=== PATIENT | male | born 1985 | race Caucasian/White ===

== ENCOUNTER 2024-08-26 08:18 | Outpatient (CLI) | payer BC, SELFPAY ==
--- OUTSIDE RECORDS SUMMARY | 2024-08-26 08:26 | XMS_ITS | Clinical Summary ---
Author Organization [facility] Address [address] [place] [address] Phone Care Team Providers Care Head Grinder Name Role Phone Fredy Naranjo MD Primary Care Provider Allergies Active Allergy Reactions Criticality Noted Date Comments Penicillins Rash Low 02/28/2016 Medications tadalafil (CIALIS) 20 mg tablet Take 1 Tablet (20 mg) by mouth 1 time daily as needed for Erectile Dysfunction. 3 Tablet 0 6 Active sildenafil (VIAGRA) 100 mg tablet Take 1 Tablet (100 mg) by mouth 1 time daily as needed for Erectile Dysfunction Order number [id number]. 24 Tablet 6 7 Active Active Problems Problem Noted Date Diagnosed Date Impotence 02/28/2016 Social History Tobacco Use Types Packs/Day Years Used Date Smoking Tobacco: Never Smokeless Tobacco: Never Alcohol Use Standard Drinks/Week Comments Yes 0 (1 standard drink = 0.6 oz pur e alcohol) Sex and Gender Information Value Date Recorded Sex Assigned at Not on file Legal Sex Male 7:05 AM CDT Gender Identity Not on file Sexual Orientation Not on file Last Filed Vital Signs Vital Sign Reading Time Taken Comments Blood Pressure 120/70 02/28/2016 10:23 AM CDT Pulse - - Temperature - - Respiratory Rate - - Oxygen Saturation - - Inhaled Oxygen Concentration - - Weight 99.8 kg (220 lb) 02/28/2016 10:23 AM CDT Height 180.3 cm (5' 11 ) 02/28/2016 10:23 AM CDT Body Mass Index 30.68 02/28/2016 10:23 AM CDT Plan of Treatment Health Maintenance Due Date Last Done Comments DTAP/TDAP/TD VACCINES (1 - Tdap) 2002 HEPATITIS B VACCINES (1 of 3 - 19+ 3-dose series) 2002 INFLUENZA VACCINE (#1) 2024 HPV VACCINES Aged Out No longer eligi ble based on patient's age to complete this topic PNEUMOCOCCAL VACCINE 0-64 YEARS Aged Out No longer eligible based on patient's age to complete this topic Care Teams Head Grinder Relationship Specialty Start Date End Date Fredy Naranjo MD [address] [place] [id number] PCP - General Family Practice 12/26/15
--- OUTSIDE RECORDS SUMMARY | 2024-08-26 08:26 | XMS_ITS | Continuity of Care Document ---
Author Organization [facility] Address [address] [place] [address] Phone Care Team Providers Care Clinical Data Manager Name Role Phone Francisco Dean MD Unavailable Unavailable Allergies, Adverse Reactions, Alerts Substance Reaction Status Criticality Penicillins Active No Information Medications Medication Instructions Dosage Effective Dates (start - stop) Status Comments Prozac 20 mg capsule take 1 capsule by o ral route every day in the morning 20 MG - Active Procedures Procedure Date RADEX ANTONIO COMPL MINIMUM 2 VIEWS 019 POSTOP FOLLOW-UP VISIT Advance Directives Directive Yes / No Effective Date File Name No Information Encounters Encounter Description Practice Location Reason(s) For Visit Diagnoses Date Provider Providers Copied on Encounter [facility] , [address] [facility] [address] [facility] [address], [place], [address], tel:[phone] [facility] No Information [address] Jermaine Singh. [address], [place], [place], [id number] . tel:[phone] [facility] , [address] [facility] [address], [place], [address], [place] tel:[phone] [facility] Right shoulder pain, unspecified chronicity [address] Jermaine Singh. [address], [place], [place], [id number] . tel:[phone] Referring Provider: Fredy Casper, [address] [facility], [place], [address] . tel:[phone] Family History Family Member Type Diagnosis Age At Onset Mother Problem (finding) Cardiovascular disease Payers Payer name Insurance type Covered republican ID Authorzeenat lakhani(s) Blue Access Choice PPO [id number] OT [id number] Social History Type Description Quantity Date Captured Comments Alcohol Use Details Unknown Caffeine Use Details Unknown Tobacco Use Status No Information Smoking Status No Information Sex Male Chief Complaint And Reason For Visit No Information Reason For Referral Reason For Referral No Information Plan Of Treatment Date Type Action Status Referral Ordered: RADEX ANTONIO COMPL MINIMUM 2 VIEWS RT shoulder ordered History Of Present Illness Encounter Date Complaint History Of Prese nt Illness No Information Functional Status Date Functional Assessmen t No Information Instructions Date Instruction Additional Infor matcyndi Weight bearing status as directe d. Related to Right shoulder pain, unspecified chronicity Home exercise program. Related t o Right shoulder pain, unspecified chronicity Discussed treatment options Rela luis fernando to Right shoulder pain, unspecified chronicity Call for increase in pain Relate d to Right shoulder pain, unspecified chronicity Assessments Type Assessment Date No Information Patient Care Teams Name Effective Dates (start - stop) Status Members No Information
--- OUTSIDE RECORDS SUMMARY | 2024-08-26 08:26 | XMS_ITS | Data Portability ---
Author Organization [facility] RuiYi, Main Office Address [address] [place] [address] Assessment No assessment recorded. Plan of Treatment Reminders Order Date Submit Date Provider Last Modified By Organization Details Last Modified Time Details Appointments None recorded. Lab testostero ne, total, serum [address] (Lab), [address] [place], [address], 4 10:41:05 vitamin D, 25-hydroxy , total, serum [address] (Lab), [address] [place], [address], 4 10:41:10 vitamin B12 + folate, serum or blood [address] (Lab), [address] [place], [address], 4 10:41:36 glycohemog lobin, total, blood [address] (Lab), [address] [place], [address], 4 10:40:31 lipid panel, serum [address] (Lab), [address] [place], [address], 4 10:40:35 TSH, serum or plasma [address] (Lab), [address] [place], [address], 4 10:40:40 PSA, serum or plasma [address] (Lab), [address] [place], [address], 4 10:40:45 hepatic function panel, serum [address] (Lab), [address] [place], [address], 4 10:40:52 BMP, serum or plasma [address] (Lab), [address] [place], [address], 4 10:40:56 CBC [address] (Lab), [address] [place], [address], 4 10:41:01 Referral None recorded. Procedures None recorded. Surgeries None recorded. Imaging None recorded. Medication Orders None recorded. Patient TargetsNo targets recorded. Patient InstructionsNo instructions recorded. Reason for Referral None Reported. Results Created Date Observation Date Name Description Value Unit Range Abnormal Flag Note LastModifiedBy Organization Detail LastModifiedTime 04/11/20 22 04/11/2022 COLOG UARD cologuard result cancel led - order d not applic able Not Available [facility] (Cologuard Orders Only) [address], [place], [address], 04/11/2022 12:40:16 06/26/20 22 06/26/2022 HEMOG LOBIN A1C HA1C 5.4 % 4.0-6. 0 Diabe paige Scree rosa maria Crite zamzam: <5.7% Consi stent with absen ce of diabe paige 5.7-6 .4% Consi stent with incre ased risk for diabe paige (pred iabet es) >OR=6 .5% Consi stent with diabe paige REFER ENCE: Diabe paige Care 2016, 39(Mcclendon ppl.1 ):s13 -s22 Not Available [facility] (Lab) [address] [place], [address], 06/26/2022 22:33:13 06/26/20 22 06/26/2022 LIPID PANEL cholesterol 294 mg/dL 140-19 9 high NIH WINDY NSUS RECOM MENDA TION FOR ERIC STERO L: ADULT CHILD LOW RISK: <200 <170 BORDE RLINE : <200- 239 ----- HIGH RISK: >240 >200 Not Available [facility] (Lab) [address] [place], [address], 06/26/2022 21:05:17 06/26/20 22 06/26/2022 LIPID PANEL triglyceride s 276 mg/dL 0-150 high NIH WINDY NSUS REPOR T RECOM MENDA TION FOR TRIGL YCERI KATRINA: ADULT CHILD LOW RISK: <150 ----- BODER LINE: 150-1 99 ----- HIGH RISK: >200 ----- Not Available [facility] (Lab) [address] [place], [address], 06/26/2022 21:05:17 06/26/20 22 06/26/2022 LIPID PANEL HDL cholesterol 41 mg/dL 40- Not Available [facility] (Lab) [address] [place], [address], 06/26/2022 21:05:17 06/26/20 22 06/26/2022 LIPID PANEL LDL cholesterol, calculated 198 mg/dL 0-130 high NIH WINDY NSUS REPOR T RECOM MENDA TIONS FOR LDL: ADULT CHILD LOW RISK <130 <110 (OPTI MAL LDL) <100 ----- BORDE RLINE : 130-1 59 ----- HIGH RISK: >160 >130 A TRIGL YCERI DE RESUL T >400 INVAL IDATE S THE CALCU LATIO N FOR LDL FRACT IONAT ION - THE LDL RESUL T WILL NOT BE REPOR DORCAS. Not Available [facility] (Lab) [address] [place], [address], 06/26/2022 21:05:17 06/26/20 22 06/26/2022 BASIC METAB OLIC PANEL sodium 141 mmol/ L 137-14 5 Not Available [facility] (Lab) [address] [place], [address], 06/26/2022 21:05:12 06/26/20 22 06/26/2022 BASIC METAB OLIC PANEL potassium 3.9 mmol/ L 3.5-5. 1 Not Available [facility] (Lab) [address] [place], [address], 06/26/2022 21:05:12 06/26/20 22 06/26/2022 BASIC METAB OLIC PANEL chloride 103 mmol/ L 98-107 Not Available [facility] (Lab) [address] [place], [address], 06/26/2022 21:05:12 06/26/20 22 06/26/2022 BASIC METAB OLIC PANEL carbon dioxide 25 mmol/ L 22-30 Not Available [facility] (Lab) [address] [place], [address], 06/26/2022 21:05:12 06/26/20 22 06/26/2022 BASIC METAB OLIC PANEL anion gap 16.9 mmol/ L 14-22 Not Available [facility] (Lab) [address] [place], [address], 06/26/2022 21:05:12 06/26/20 22 06/26/2022 BASIC METAB OLIC PANEL glucose 98 mg/dL 70-99 Not Available [facility] (Lab) [address] [facility], [address], 06/26/2022 21:05:12 06/26/20 22 06/26/2022 BASIC METAB OLIC PANEL BUN 18 mg/dL 8-19 Not Available [facility] (Lab) [address] [place], [address], 06/26/2022 21:05:12 06/26/20 22 06/26/2022 BASIC METAB OLIC PANEL creatinine 1.12 mg/dL 0.66-1 .25 Not Available [facility] (Lab) [address] [place], [address], 06/26/2022 21:05:12 06/26/20 22 06/26/2022 BASIC METAB OLIC PANEL GFR >60 Refer ence Range : Suring ge GFR Healt hy Adult : >60 mL/mi n/1.7 3 m2 Chron ic Kidne y Disea se: 15-60 mL/mi n/1.7 3 m2 Kidne y Failu re: <15/m L/min /1.73 m2 www.n iddk. nih.g ov The MDRD study equat ion has not been valid ated in child tessa <18 years of age; pregn ant women ; the elder ly >85 years of age; or in some racia l or ethni c subgr oups, such as [facility] nics. Outsi de the valid ated renetta eters , estim ated GFR is less accur ate, requi ring clini israel judgm ent on a case- by-ca se basis . Clini israel inter preta tion for other races and ages must be made by the clini roula. The MDRD study equat ion has not been valid ated for the evalu ation of serum creat inine relat ed to nutri yumiko l statu s or medic ation usage . For perso ns <18 years of age, a pedia tric GFR calcu lator is avail able on the F websi te: https ://michelle w.jocelin murcia.o rg/pr ofess ional s/kdo qi/gf r_cal culat or Not Available [facility] (Lab) [address] [place], [address], 06/26/2022 21:05:12 06/26/20 22 06/26/2022 BASIC METAB OLIC PANEL calcium 9.5 mg/dL 8.4-10 .2 Not Available [facility] (Lab) [address] [facility], [address], 06/26/2022 21:05:12 Result Notes None recorded. Problems Name Problem SNOMED Code Status Onset Date Resolution Date Notes Provider Name and Address Organization Details Recorded Time Deviated nasal septum 293352064 Active 2022 Not Available [facility] 3 10:43:25 Postoperative pain 508493913 Active 2022 Not Available [facility] 3 10:43:25 Chronic sinusitis 89028669 Active 2022 Not Available [facility] 3 10:43:25 Effects of high altitude 31229259 Active 2022 TIA Lawrence [address], [place], [address] , [employer] 3 17:14:59 Bacterial conjunctiviti s 112639268 Active 2022 CECILIA Cueto [address] [facility] [facility], [address] [facility], [place], [address] , [employer] 3 10:19:12 Upper respiratory infection 74458376 Active 2022 CECILIA Cueto [address], [place], [address] , [employer] 3 10:22:41 Acute urticaria 388206399 Active 2023 Kimberly Barragan MD [address], [address], [place], [address] , [employer] 4 15:42:18 Problem Notes None recorded. Procedures Surgical History Date Name Laterality Status Provider Name and Address Organization Details Recorded Time 08/27/19 23 nasal septoplasty completed China Watters RN [facility] 09/05/2022 11:50:35 08/27/19 reduction of nasal turbinate completed China Watters RN [facility] 09/05/2022 11:50:53 procedure on urinary bladder completed Not Available [facility] 09/05/2022 10:41:45 Imaging Results None recorded. Procedure Notes None recorded. Medical Equipment None Reported. Allergies Allergen ID Allergen Name Allergen Category Reaction Reaction Severity Criticality Documentation Date Start Date Code Code System Note Provider Name and Address Organization Details Recorded Time Product containin g penicilli n (product) medicatio n Not available Not available Not available 09/05/2022 [id number] [id number] SNOMED as a child Not Available [facility] 10:45:13 Medications Name Sig Start Date Stop Date Status Note LastModified by Organization Details LastModified Time atorvastati n 40 mg tablet Take 1 tablet every day by oral route. active Not Available Not Available No t Available azithromyci n 250 mg tablet TAKE 2 TABLETS BY MOUTH ON DAY 1, AND THEN TAKE 1 TABLET BY MOUTH ONCE A DAY ON DAY 2 THROUGH DAY 5 active Not Available Not Available No t Available acetazolami de 125 mg tablet TAKE 1 TABLET BY MOUTH TWICE DAILY FOR 10 DAYS active Not Available Not Available No t Available benzonatate 200 mg capsule TAKE 1 CAPSULE BY MOUTH THREE TIMES DAILY NEEDED active Not Available Not Available No t Available prednisone 20 mg tablet TAKE 2 TABLETS BY MOUTH ONCE DAILY FOR 5 DAYS active Not Available Not Available No t Available hydrocodone 7.5 mg-acetamin ophen 325 mg tablet Take 1 tablet every 6 hours by oral route as needed. 09/05 completed Not Available Not Available Not Available polymyxin B sulfate 10,000 unit-trimet hoprim 1 mg/mL eye drops INSTILL 1 DROP INTO AFFECTED EYE(S) EVERY 6 HOURS active Not Available Not Available No t Available fluoxetine 10 mg capsule TAKE 1 CAPSULE BY MOUTH ONCE DAILY WITH A 20MG CAPSULE FOR A TOTAL OF 30MG active Not Available Not Available No t Available scopolamine 1 mg over 3 days transdermal patch active Not Available Not Available Not Available hydroxyzine HCl 10 mg tablet TAKE 1 TABLET BY MOUTH ONCE DAILY NEEDED active Not Available Not Available No t Available cefdinir 300 mg capsule Take 1 capsule every 12 hours by oral route for 10 days. active Not Available Not Available No t Available fluoxetine 20 mg capsule TAKE 1 CAPSULE BY MOUTH ONCE DAILY active Not Available Not Available No t Available fluticasone propionate 50 mcg/actuati on nasal spray,suspe nsion Flushing 1 spray every day by intranasa l route. active Not Available Not Available No t Available COVID-19 test specimen collection TEST DIRECTED 06/18 completed Not Available Not Available Not Available Vitals Date Recorded Body mass index (BMI) Body mass index (BMI) Body height Body height Oxygen saturation Oxygen saturation in Arterial blood by Pulse oximetry Oxygen saturation Oxygen saturation in Arterial blood by Pulse oximetry Heart rate Heart rate Body temperature Body temperature Body temperature Body weight Body weight Body weight Systolic blood pressure Diastolic blood pressure Systolic blood pressure Diastolic blood pressure Provider Name and Address Organization Details Last Updated DateTime 3 33.1 kg/m2 32.9 kg/m2 180.34 cm 180.34 cm 98 % 98 % 98 % 98 % 87 /min 111 /min 98.3 [degF] 98 [degF] 97.7 [degF] 509043. 39 g 050143. 8 g 172467. 8 g 132 mm[Hg] 84 mm[Hg] 140 mm[Hg] 84 mm[Hg] Not Available [facility] 3 10:42:38 Date Recorded Body height Body mass index (BMI) Body weight Body temperature Provider Name and Address Organization Details Last Updated DateTime 09/06/2022 180.34 cm 33.3 kg/m2 307191.86 g 98.4 [degF] China Watters RN [facility] 09/06/2022 15:10:51 Date Recorded Body height Body mass index (BMI) Body weight Body temperature Heart rate Oxygen saturation Oxygen saturation in Arterial blood by Pulse oximetry Systolic blood pressure Diastolic blood pressure Provider Name and Address Organization Details Last Updated DateTime 4 180.34 cm 32.9 kg/m2 937446. 8 g 97.9 [degF] 82 /min 97 % 97 % 138 mm[Hg] 96 mm[Hg] Cristal Leiva RN [facility] 4 09:51:20 Social History Question Answer Notes LastModified by Organizat ion Details LastModified Time Tobacco Smoking Status Never Smoker Not Available [facility] 09/05/2022 10:40:53 Do You Have An Advance Directive? No MIGRATION.[id number] Information not available 09/05/2022 What Is Your Level Of Alcohol Consumption? Occasional MIGRATION.991999 3383 Information not available 09/05/2022 What Is Your Level Of Caffeine Consumption? Moderate MIGRATION.957605 7324 Information not available 09/05/2022 In The 14 Days Before Symptom Onset, Have You Had Close Contact With A Laboratory-confir med COVID-19 While That Case Was Ill? No MIGRATION.[id number] 6462 Information not available 09/05/2022 In The 14 Days Before Symptom Onset, Have You Had Close Contact With A Person Who Is Under Investigation For COVID-19 While That Person Was Ill? No MIGRATION.862344 1274 Information not available 09/05/2022 What Type Of Diet Are You Following? REGULAR MIGRATION.126623 3996 Information not available 09/05/2022 What Is The Highest Grade Or Level Of School You Have Completed Or The Highest Degree You Have Received? 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 No MIGRATION.089177 1626 Information not available 09/05/2022 What Is The Fluoride Status Of Your Home? Unknown MIGRATION.100745 2193 Information not available 09/05/2022 Are There Any Guns Present In Your Home? Yes MIGRATION.666691 8636 Information not available 09/05/2022 Do You Use Insect Repellent Routinely? Yes MIGRATION.914471 2863 Information not available 09/05/2022 Where Do You Live? [place] MIGRATION.787078 8469 Information not available 09/05/2022 Do You Have A Medical Power Of Research Agricultural Engineer? No MIGRATION.039202 4968 Information not available 09/05/2022 Do You Have Any Pets? Yes MIGRATION.860747 4891 Information not available 09/05/2022 What Is Your Relationship Status? MIGRATION.169692 8052 Information not available 09/05/2022 Do You Use Your Seat Belt Or Car Seat Routinely? Yes MIGRATION.470567 7328 Information not available 09/05/2022 Do You Have Smoke And Carbon Monoxide Detectors In Your Home? Yes MIGRATION.508686 4631 Information not available 09/05/2022 Are You Passively Exposed To Smoke? No MIGRATION.353779 1869 Information not available 09/05/2022 Are There Any Smokers In Your House? No MIGRATION.381119 0117 Information not available 09/05/2022 Do You Participate In Social Media? Yes MIGRATION.586480 9947 Information not available 09/05/2022 What Types Of Sporting Activities Do You Participate In? Running MIGRATION.958275 5455 Information not available 09/05/2022 Do You Feel Stressed (tense, Restless, Nervous, Or Anxious, Or Unable To Sleep At Night)? [id number] MIGRATION.671678 4289 Information not available 09/05/2022 Do You Use Any Illicit Or Recreational Drugs? No MIGRATION.073382 3394 Information not available 09/05/2022 Do You Use Sunscreen Routinely? Yes MIGRATION.828928 8444 Information not available 09/05/2022 Have You Recently Traveled Abroad? No MIGRATION.899151 4908 Information not available 09/05/2022 Are You Currently In School? No MIGRATION.622832 3038 Information not available 09/05/2022 Do You Have Any Dietary Restrictions? No MIGRATION.552186 6664 Information not available 09/05/2022 Sex: Male Functional Status Question Answer Note LastModified by Organizat ion Details LastModified Time What is your exercise level? Occasional MIGRATION.[id number] 35 Information not available 09/05/2022 Mental Status None recorded. Family History Relationship Description Onset Age of this Age Resolved Age Notes LastModified by Organization Details LastModified Time Mother Heart disease MIGRATION.[id number] Not available 09/05/2022 10:41:47 Maternal Grandmother Family history of malignant neoplasm lung, colon [id number] Not available 09/24/2023 09:44:21 Maternal Uncle Malignant lymphoma ~60's Not available 2023 09:44:21 Maternal Uncle Malignant lymphoma ~60's [id number] Not available 2023 09:44:21 Maternal Grandfather Diabetes mellitus MIGRATION.620 [id number] Not available 09/05/2022 10:41:47 Notes:family history of canc er mothers side NO ENT HISTORY Medical History Condition Response BLINDNESS N RHEUMATIC FEVER N KIDNEY STONES N BLADDER PROBLEMS N MRSA N OTHER # 1 N POLIO N LUNG DISEASE/DISORDER N HISTORY OF DRUG ABUSE N COPD N RADIATION / CHEMOTHERAPY N Other # 2 N BLOOD DISEASES N SURGERY N EAR OR HEARING PROBLEMS N MUMPS N SHINGLES N BOWEL PROBLEMS N FEMALE PROBLEMS / INFECTIONS N DEPRESSION (INCLUDING POST ) Y STROKE/TIA N THYROID DISEASE N ULCERS N BENIGN PROSTATIC HYPERPLASIA N MEASLES N CERVICALGIA N TB SKIN TEST N HYPOTENSION N MYOCARDIAL INFARCTION N OBESITY N PARAPELGIA N GERD/NAUSEA N ANEURYSM N URINARY/BLADDER/KIDNEY PROBLEMS N CORONARY ARTERY DISEASE (CAD) N MENIERE'S DISEASE N ADDICTION CONCERNS N ENDOMETRIOSIS N USE OF BLOOD THINNERS N SKIN PROBLEMS N EMPHYSEMA N GASTROINTESTINAL DISORDER N MUSCLE,JOINT OR BONE PROBLEMS N GASTROINTESTINAL BLEEDING N BLOOD CLOTS N ASTHMA N CATARACTS N ERECTILE DYSFUNCTION N GI PROBLEMS N CHF N Low Testosterone N NEUROPATHY N INFERTILITY N AIDS/HIV N FRACTURES N CHEMOTHERAPY / RADIATION N VISION/EYE PROBLEMS N LIVER DISEASE N MALE HYPOGONADISM N HYPERTENSION N TOURETTE'S N ANXIETY DISORDER Y BLOOD TRANSFUSION N ANEMIA/BLOOD DISORDER N CHRONIC EAR INFECTIONS N BRONCHITIS N TUBERCULOSIS N GLAUCOMA N FOOT PROBLEM N DIVERTICULITIS N CHICKENPOX N SLEEP APNEA N ALLERGIES/HAYFEVER N INFECTIOUS DISEASE N HEART ARRHYTHMIA N PROSTATE N INSOMNIA N HIGH CHOLESTEROL / HYPERLIPIDEMIA Y HYPERTHYROIDISM N EYE PROBLEMS N EATING DISORDER N EDEMA N CHRONIC PAIN SYNDROME N CONSTIPATION N CAROTID BLOCKAGE N BACK / NECK PROBLEMS Y HAVE YOU BEEN HOSPITALIZED OR SEEN IN [facility] IN THE PAST YEAR ? N ATHEROSCLEROSIS N BREAST PROBLEMS N DIALYSIS N ECZEMA N FIBROMYALGIA N OSTEOPOROSIS N ARTHRITIS N NO SIGNIFICANT PAST MEDICAL HISTORY N APPENDICITIS N DIABETES, TYPE N BAD TEETH N HEARTBURN / REFLUX N ADD/ADHD N AUTISM SPECTRUM DISORDER (ASD) N HEPATITIS / LIVER DISEASE N PULMONARY DISEASE N GOUT N SLEEP DISORDER N ALZHEIMER'S DISEASE N PAIN N HERPES N DEMENTIA N HEADACHES/MIGRAINES N SEIZURES/EPILEPSY N VASCULAR DISEASE N PACEMAKER N DIZZINESS N HEART DISEASE/HEART PROBLEMS N KIDNEY DISEASE N DEVELOPMENTAL OR BEHAVIORAL DISORDERS N MULTIPLE SCLEROSIS N SCARLET FEVER N MENTAL DISORDER/ILLNESS N CARDIAC ARRHYTHMIA N CANCER: SPECIFY N PNEUMONIA N ATRIAL FIBRILLATION N Gall Stones N PULMONARY EMBOLISM N AUTOIMMUNE DISEASE N Past Encounters Encounter ID Performer Location Encounter Start Date Encounter Closed Date Diagnosis/Indication Diagnosis SNOMED-CT Code Diagnosis ICD10 Code Diagnosis Note [id number] [facility] [address] [place] [address] 04/11/2021 00:00:00 04/11/2021 10:34:57 [id number] [facility] [address] [facility] [address] [address] [place] [address] 06/26/2022 00:00:00 06/26/2022 17:59:14 [id number] [facility] [place] [address] [place] [address] 08/02/2022 00:00:00 08/02/2022 13:12:12 [id number] Bryan Ashley MD [facility] [place] [address] [place] [address] 09/06/2022 15:05:22 09/06/2022 16:11:40 Deviated nasal septum 114015744 J34.2 [id number] TIA Cueto-John [facility]_[address] [place] [address] 09/24/2023 09:43:00 09/24/2023 10:28:00 Adult health examination [id number] Z00.00 Encouraged fresh fruits and veggies-lo w intake of bothIncrea se daily water intake-40- 64oz water, no other fluidsEnco urage 30 mins of daily exercise-w eight training, runs occColonos copy-due in 5 yearsLDCT- never a smoker-occ drinker-de clines flu shot Screening for disorder 050978720 Z13.9 Health Concerns Section Related Observation LastModified by Organization Detai ls LastModified Time None Recorded Concern Status LastModified by Organization Details LastModified Time None Recorded Advance Directives Directive N: Payers Encounter Date Sequence Insurance Name Policy Number Policy Lewis Covered Member ID Lewis Member ID Guarantor Name 09/06/2022 1 [place] [id number] 1 Steve Patel [id number] Steve Patel 09/24/2023 1 [place] [id number] 1 Steve Patel [id number] Steve Patel Notes Date Note Type Note Provider Name and Address Organization Details Recorded Time 09/06/2022 text/html this patient is doing well following septoplasty but did develop sinusitis for which antibiotic were prescribed. He is now doing better. Bryan Ashley MD [address] [facility] [address], [place], [address], [employer] [facility] 09/06/2022 15:20:00 09/24/2023 text/html Pt is here to complete annual exam CECILIA Cueto [address] [facility] [address], [place], [address], [employer] [facility] 09/24/2023 10:19:33
--- NOTE | 2024-09-08 11:33 | WPDHOLTEREM ---
Holter/Event Monitor Holter/Event Monitor Date of procedure: 08/26/24 Holter/Event Procedure: 3-7 Day Holter Monitor Indications: Tachycardia Conclusion: 1. 3 days holter monitor on 08/26/24. 2. Underlying rhythm is sinus rhythm. HR range 46-126 bpm; average HR 77 bpm. 3. There are rare premature supraventricular complexes. No supraventricular tachycardia. 4. There are rare premature ventricular complexes. No ventricular tachycardia. 5. No significant pauses greater than 3 seconds. 6. No symptoms for correlation.
== END 2024-08-26 08:19 | disposition home or self-care (01) ==
LOC: ANHCARD 08:21
PROVIDERS: PCP Nurse Practitioner Family; Visit Provider Nurse Practitioner Family
DX: I49.1 Atrial premature depolarization (principal); I49.3 Ventricular premature depolarization; R00.0 Tachycardia, unspecified
CPT/HCPCS: 93242